=== PATIENT | male | born 1935 | race Caucasian/White ===

== ENCOUNTER 2023-11-25 13:55 | Inpatient (IN) | payer MEDICARE, OTHER ==
[~2023-11-25] VITALS: Ht 170.2 cm; Wt 81.6 kg
[2023-11-25 14:05] VITALS: BP 118/70; PULSE 60; RESP 18; TEMP 98; O2SAT 80
[2023-11-25] MEDS: NACL 0.9% 500 ML IV ONE (14:33)
[2023-11-25 15:24] LABS: BASOPHILS % (AUTO) 0.1 % (0.0-2.0); EOSINOPHILS % (AUTO) 0.1 % (0.0-4.0); HEMATOCRIT 32.8 % (36-52); HEMOGLOBIN 10.3 g/dL (12.0-18.0); LYMPHOCYTES # (AUTO) 0.4 K/uL (2.0-11.5); LYMPHOCYTES % (AUTO) 13.2 % (20.5-51.1); MEAN CORPUSCULAR HEMOGLOBIN 29 pg (27-31); MEAN CORPUSCULAR HGB CONC 32 g/dL (33-37); MEAN CORPUSCULAR VOLUME 92.2 fL (80-94); MONOCYTES # (AUTO) 0.1 K/uL (0.8-1.0); MONOCYTES % (AUTO) 4.5 % (1.7-9.3); NEUTROPHILS # (AUTO) 2.5 K/uL (1.8-7.7); NEUTROPHILS % (AUTO) 82.1 % (42.2-75.2); PLATELET COUNT (AUTO) 106 K/uL (140-450); RED BLOOD CELL COUNT(AUTO) 3.55 MIL/uL (4.20-6.10); RED CELL DISTRIBUTION WIDTH 18.5 % (11.6-13.7)
[2023-11-25 15:37] LABS: ALANINE AMINOTRANSFERASE 17 U/L (12-78); ALBUMIN 1.7 g/dL (3.4-5.0); ALKALINE PHOSPHATASE 62 U/L (50-136); ANION GAP 19.8 (8-16); ASPARTATE AMINOTRANSFERASE 65 U/L (15-37); CALCIUM 10.8 mg/dL (8.5-10.1); CARBON DIOXIDE 23.7 mmol/L (21-32); CHLORIDE 107 mmol/L (98-107); CREATININE 2.9 mg/dL (0.6-1.3); GLUCOSE 155 mg/dL (74-106); POTASSIUM 3.5 mmol/L (3.5-5.1); SODIUM SERUM 147 mmol/L (136-145); TOTAL BILIRUBIN 0.7 mg/dL (0.0-1.0); TOTAL PROTEIN, SERUM 5.9 g/dL (6.4-8.2); UREA NITROGEN, BLOOD 24 mg/dL (7-18)
[2023-11-25 15:48] LABS: LACTIC ACID 12.1 mmol/L (0.4-2.0)
[2023-11-25] MEDS: PIPERACILLIN/TAZOBACTAM 4.5 GM in DEXTROSE 5% 100 ML IV ONE (15:53)
[2023-11-25] MEDS ORDERED: VANCOMYCIN 1,000 MG VIAL ONE (15:58)
[2023-11-25] MEDS: VANCOMYCIN 1,000 MG in DEXTROSE 5% 250 ML IV ONE (16:01)
[2023-11-25 16:50] VITALS: PULSE 64; O2SAT 91
[2023-11-25] MEDS ORDERED: ONDANSETRON 4 MG/2 ML VIAL IVP PRN (18:15)
[2023-11-25] MEDS ORDERED: MORPHINE SULFATE 2 MG/ML SYR IVP PRN (18:20)
[2023-11-25] MEDS ORDERED: AZITHROMYCIN 500 MG INJ VIAL IV ONE (18:38)
[2023-11-25] MEDS: AZITHROMYCIN 500 MG in DEXTROSE 5% 250 ML IV ONE (18:42)
[2023-11-25 19:26] LABS: BLOOD GAS BASE EXCESS -2.4 mmol/L (-2.0-2.0); BLOOD GAS HCO3 21.4 mmol/L (22-26); BLOOD GAS PCO2 33.4 mmHg (35-45); BLOOD GAS PH 7.425 (7.35-7.45)
[2023-11-25 19:27] LABS: BLOOD GAS O2 SAT% 86.9 % (92.0-98.5)
[2023-11-25 19:53] VITALS: O2SAT 95
[2023-11-25] MEDS ORDERED: MEMA5TAB15 PO (19:56)
[2023-11-25] MEDS ORDERED: WARF-83 PO (19:56)
[2023-11-25] MEDS ORDERED: SIMV-33 PO (19:57)
[2023-11-25] MEDS ORDERED: METO25TA PO (19:57)
[2023-11-25] MEDS ORDERED: MIRT-120 PO (19:57)
[2023-11-25] MEDS ORDERED: TAMS0.4C96 PO (20:02)
[2023-11-25] MEDS ORDERED: TRAZ-343 PO (20:02)
[2023-11-25] MEDS ORDERED: ESCI10TA PO (20:02)
[2023-11-25] MEDS ORDERED: EMPA25TA PO (20:02)
[2023-11-25] MEDS ORDERED: METF1TER8 PO (20:02)
[2023-11-25] MEDS ORDERED: ASPI-1749 PO (20:02)
[2023-11-25] MEDS ORDERED: LISI10TA30 PO (20:02)
[2023-11-25] MEDS ORDERED: GLIP10TE1 PO (20:02)
[2023-11-25] MEDS ORDERED: PRAV20TA5 PO (20:02)
[2023-11-25] MEDS ORDERED: QUET25TA PO (20:02)
[2023-11-25] MEDS ORDERED: BUPR300T70 PO (20:02)
[2023-11-25] MEDS ORDERED: HYDR200T94 PO (20:02)
[2023-11-25] MEDS ORDERED: DEUT12TA PO (20:02)
[2023-11-25] MEDS ORDERED: LURA80TA1 PO (20:02)
[2023-11-25 20:10] VITALS: PULSE 64; RESP 18; O2SAT 92
[2023-11-25] MEDS: DEXT 5% /NACL 0.9% 1,000 ML IV SCH (21:24)
[2023-11-25] MEDS: AMPICILLIN/SULBACTAM 3 GM in NACL 0.9% 100 ML IV SCH (21:25)
[2023-11-25] MEDS: AMPICILLIN/SULBACTAM 3 GM VIAL ONE (21:27)
[2023-11-25 22:34] VITALS: PULSE 88; RESP 24; O2SAT 86
[2023-11-26] VITALS (12 sets, daily range): BP systolic 90–130; BP diastolic 24–92; PULSE 6–96; RESP 17–18; TEMP 97.2–98.8; O2SAT 88–100
[2023-11-26] MEDS: ASPIRIN 81 MG TAB.CHEW PO SCH (06:50)
[2023-11-26 07:36] LABS: HEMATOCRIT 32.1 % (36-52); HEMOGLOBIN 10.4 g/dL (12.0-18.0); MEAN CORPUSCULAR HEMOGLOBIN 29 pg (27-31); MEAN CORPUSCULAR HGB CONC 33 g/dL (33-37); PLATELET COUNT (AUTO) 81 K/uL (140-450); RED BLOOD CELL COUNT(AUTO) 3.57 MIL/uL (4.20-6.10); RED CELL DISTRIBUTION WIDTH 18.4 % (11.6-13.7)
[2023-11-26 07:45] LABS: ALANINE AMINOTRANSFERASE 31 U/L (12-78); ALBUMIN 1.5 g/dL (3.4-5.0); ALKALINE PHOSPHATASE 69 U/L (50-136); ANION GAP 13.6 (8-16); ASPARTATE AMINOTRANSFERASE 101 U/L (15-37); CARBON DIOXIDE 28.5 mmol/L (21-32); CHLORIDE 108 mmol/L (98-107); CREATININE 2.8 mg/dL (0.6-1.3); GLUCOSE 168 mg/dL (74-106); POTASSIUM 4.1 mmol/L (3.5-5.1); SODIUM SERUM 146 mmol/L (136-145); TOTAL BILIRUBIN 0.9 mg/dL (0.0-1.0); TOTAL PROTEIN, SERUM 5.5 g/dL (6.4-8.2); UREA NITROGEN, BLOOD 30 mg/dL (7-18)
[2023-11-26 08:26] LABS: LYMPHOCYTES % (MANUAL) 10 % (20-46); MONOCYTES % (MANUAL) 5 % (5-12)
[2023-11-26 08:27] LABS: ANISOCYTOSIS 1+; METAMYELOCYTES % 3 % (0-0); PLATELET ESTIMATE SLIGHTLY DECREASED; POIKILOCYTOSIS 1+
[2023-11-26 08:28] LABS: OVALOCYTES 1+; TARGET CELLS 1+
[2023-11-26 08:40] LABS: INR 2.75 (0.8-1.2); PROTHROMBIN TIME 27.3 secs (10.8-13.4)
[2023-11-26] MEDS: TAMSULOSIN 0.4 MG CAP PO SCH (09:00)
[2023-11-26] MEDS: METOPROLOL 25 MG TAB PO SCH (09:00)
[2023-11-26] MEDS: PANTOPRAZOLE 40 MG INJ VIAL IVP SCH (10:44)
[2023-11-26] MEDS: Z-GUARD PASTE TP ONE (16:38)
[2023-11-26] MEDS: ALBUTEROL SULFATE/IPRATROPIU 3 ML SOL IH SCH (19:00)
[2023-11-26] MEDS: NACL 0.9% 500 ML IV ONE (21:30)
[2023-11-27] VITALS (9 sets, daily range): BP systolic 108–140; BP diastolic 33–79; PULSE 60–62; RESP 16–22; TEMP 97.3–98.4; O2SAT 94–98
[2023-11-27] MEDS ORDERED: FOAM DRESSING TP PRN (13:50)
[2023-11-27] MEDS ORDERED: HYDRAGUARD CREAM TP PRN (13:50)
[2023-11-27] MEDS ORDERED: Z-GUARD PASTE TP PRN (13:50)
[2023-11-27] MEDS: ALBUTEROL SULFATE/IPRATROPIU 3 ML SOL IH SCH (14:03)
[2023-11-28] MEDS ORDERED: HYDRAGUARD CREAM TP SCH (01:00)
[2023-11-28] MEDS ORDERED: Z-GUARD PASTE TP SCH (01:00)
[2023-11-28] MEDS ORDERED: FOAM DRESSING TP SCH (13:00)
[2023-11-28] MEDS ORDERED: GAUZE TP SCH (13:00)
== END 2023-11-28 10:48 | DRG 871 ==
LOC: MED 13:55 → MMU 18:12 → MTU 19:51 → MMU 11-28 04:00
PROVIDERS: ADMIT Student in an Organized Health Care Education/Training Program; ATTEND Student in an Organized Health Care Education/Training Program
PROC: 5A0935A Assistance with Respiratory Ventilation, Less than 24 Consecutive Hours, High Flow/Velocity Cannula (ICD-10-PCS; principal; 2023-11-25)
DX: A41.9 Sepsis, unspecified organism (principal); J69.0 Pneumonitis due to inhalation of food and vomit; J96.01 Acute respiratory failure with hypoxia; E44.0 Moderate protein-calorie malnutrition; E87.20 Acidosis, unspecified; I24.89 Other forms of acute ischemic heart disease; N17.9 Acute kidney failure, unspecified; E87.0 Hyperosmolality and hypernatremia; Z66 Do not resuscitate; I25.10 Atherosclerotic heart disease of native coronary artery without angina pectoris; E11.22 Type 2 diabetes mellitus with diabetic chronic kidney disease; I12.9 Hypertensive chronic kidney disease with stage 1 through stage 4 chronic kidney disease, or unspecified chronic kidney disease; N18.9 Chronic kidney disease, unspecified; Z95.1 Presence of aortocoronary bypass graft; Z95.0 Presence of cardiac pacemaker; Z68.28 Body mass index [BMI] 28.0-28.9, adult; Z79.01 Long term (current) use of anticoagulants; Z79.899 Other long term (current) drug therapy
CPT/HCPCS: 36415; 36600; 71045; 80053; 82803; 83605; 83880; 84484; 85025; 85610; 87040; 87081; 92526; 93005; 94640; 94664; 96365; 96368; 99291; J0295; J0456; J1644; J2470; J3370